=== PATIENT | female | born 1960 | race Caucasian/White ===

== ENCOUNTER 2017-02-07 12:32 | Emergency (ER) | payer MEDICARE, OTHER ==
[~2017-02-07 12:32] MED LIST: AFRIN15 M1; AMOXICILLIN PO; ATIVAN0.5 M1 PO; BENTYL20 MG PO; ELIMITE60 GM TOP; LISINOPRIL10 MG PO; LORTAB 5/500 TA1 TA1 PO; LORTAB 5/500 TA1 TA2 PO; LORTAB 7.5-5001 TAB PO; NAPROXEN PO; PEN-VEE K PO; VOLTAREN75 MG PO; ZYRTEC-D TABLE1 EACH PO
[2017-03-18] MEDS ORDERED: VITAMIN D31000 UNI1 (17:59)
[2017-03-18] MEDS ORDERED: ASPIRIN81 MG (17:59)
[2017-04-12] MEDS ORDERED: LISINOPRIL10 MG PO (12:21)
== END 2017-02-07 12:56 | disposition home or self-care (01) ==
LOC: CFTX 12:32
DX: J01.10 Acute frontal sinusitis, unspecified (principal); H00.016 Hordeolum externum left eye, unspecified eyelid; F32.9 Major depressive disorder, single episode, unspecified; I10 Essential (primary) hypertension; F41.9 Anxiety disorder, unspecified; F17.210 Nicotine dependence, cigarettes, uncomplicated; Z90.710 Acquired absence of both cervix and uterus; Z88.5 Allergy status to narcotic agent
CPT/HCPCS: 99282; 99283

== ENCOUNTER 2017-03-18 18:07 | Emergency (ER) | payer MEDICARE, OTHER ==
[~2017-03-18 18:07] MED LIST changes: +ASPIRIN81 MG; +VITAMIN D31000 UNI1
[2017-04-12] MEDS ORDERED: LISINOPRIL10 MG PO (12:21)
== END 2017-03-18 19:17 | disposition home or self-care (01) ==
LOC: SED 18:07
DX: H92.01 Otalgia, right ear (principal); F41.9 Anxiety disorder, unspecified; F32.9 Major depressive disorder, single episode, unspecified; I10 Essential (primary) hypertension; F17.210 Nicotine dependence, cigarettes, uncomplicated; Z90.710 Acquired absence of both cervix and uterus; Z98.890 Other specified postprocedural states
CPT/HCPCS: 99283

== ENCOUNTER → 2017-04-12 | Outpatient (CLI) | payer MEDICARE, OTHER ==
--- NOTE | ~2017-04-12 | EKG ---
PATIENT: SACHI CARRION UNIT #: [id number] Ventricular Rate: 105 BPM Atrial Rate: 105 BPM P-R Interval: 124 ms QRS Duration: 74 ms Q-T Interval: 324 ms QTC Calculation(Bezet): 428 ms P Mcgregor: 39 degrees Calculated R Mcgregor: -5 degrees Calculated T Mcgregor: 34 degrees Diagnosis Line: Sinus tachycardia with Fusion complexes Diagnosis Line: Otherwise normal ECG Diagnosis Line: When compared with ECG of 24-JAN-2016 16:30, Diagnosis Line: Fusion complexes are now Present Diagnosis Line: Confirmed by EDITH CASTILLO MD ([id number]) on 04/12/2017 Diagnosis Line: 6:10:26 PM INTERPRETING MD: JONATHAN CEBALLOS
[2017-04-12 14:02] LABS: ALBUMIN SERUM 4.5 g/dL (3.5-5.0); BILIRUBIN,TOTAL 0.4 mg/dL (0.2-2.0); BUN/CREATININE RATIO 17.5; CALCIUM SERUM 9.7 mg/dL (8.4-10.2); CREATININE SERUM 0.8 mg/dL (0.6-1.4); GLOM FILT RATE Estimated 80.8 mL/min (>60); POTASSIUM 4.4 mmol/L (3.5-5.1); PROTEIN TOTAL SERUM 7.5 g/dL (6.0-8.3)
== END | disposition home or self-care (01) ==
LOC: CAMB 11:45
PROVIDERS: Surgery
DX: Z01.818 Encounter for other preprocedural examination (principal); E66.01 Morbid (severe) obesity due to excess calories
CPT/HCPCS: 36415; 80053; 93005

== ENCOUNTER → 2017-04-17 | Day surgery (SDC) | payer MEDICARE, OTHER ==
--- NOTE | ~2017-04-17 | OR ---
Unit #: [id number] #: [id number] Patient: SACHI CARRION [id number] [address] [place], [place] [address] [id number] MR#: [id number] NAME: SACHI CARRION ROOM: Date of Procedure: 04/17/2017 Admission Date: 04/17/2017 Surgeon: Nikolas Collazo Jr., M.D. : 1960 Attending Physician: Nikolas Collazo Jr., M.D. Primary Care Physician: Jose Tariq Aprn OPERATIVE REPORT INDICATIONS FOR PROCEDURE The patient is a 57-year-old white female, who has been having intermittent mid epigastric and right upper quadrant abdominal pain. She was worked up and noted to have evidence of cholelithiasis with chronic cholecystitis. She is brought in this time for laparoscopic cholecystectomy at her request. She understands the procedure including the risks, including that of common duct injury, biliary leak, and bleeding, and intra-abdominal organ injury, and consents. PREOPERATIVE DIAGNOSES Chronic cholecystitis with cholelithiasis and biliary colic. POSTOPERATIVE DIAGNOSES Chronic cholecystitis with cholelithiasis and biliary colic, noting some enlarged veins in the gallbladder bed itself and some chronic inflammation. ANESTHESIA General with endotracheal intubation and 0.5% Marcaine with epinephrine locally. PROCEDURE PERFORMED Laparoscopic cholecystectomy. DESCRIPTION OF PROCEDURE The patient was positioned in supine position. After being anesthetized and intubated, she was prepped and draped in routine fashion for laparoscopic cholecystectomy. A small 0.5 cm incision was made in the right lateral abdominal wall area and a 5-mm Optiview was introduced in the abdomen. The abdomen was then inflated with CO2 gas. The camera was introduced. There was no evidence of any injury related to introduction of the Optiview. Brief intraabdominal exploration was carried out. The patient was noted to have multiple omental adhesions, but these were inferior to the umbilicus. Therefore, small supraumbilical incision was made 0.5 cm in length and a 5-mm Optiview was placed above the umbilicus. The camera was switched to this port and an additional 5-mm port placed laterally in the right lateral abdominal wall area and 11-mm port just to the right of the upper midline. Intra-abdominal exploration was carried out with the scope. The patient was noted to have multiple adhesions of the omentum to the lower abdominal wall area, but no other specific abnormalities except for what appeared to be chronic inflamed gallbladder. The gallbladder was lifted. Dissection was carried out in the triangle of Calot. There was some moderate fibrosis in the area, but the cystic duct Unit #: [id number] #: [id number] Patient: SACHI CARRION was isolated, hemoclipped x4, and divided approximately a 1 cm from its junction with the common duct. The common duct appeared normal and not dilated. Cystic artery was identified, hemoclipped x3, and divided. The gallbladder was then removed from its bed with the hook cautery using a current of 20 and after it was released, it was removed through the upper midline incision along with the grasping clamp and the port. There were dilated veins in the gallbladder bed compatible with venous leslie and these were controlled with the Bovie cautery as well as packed and pressure held for about 10 minutes with Surgicel being left in the area. After total hemostasis was noted, the clips on cystic duct and cystic artery were checked. There was no evidence of any leak or bleeding and after small amount of blood was removed with a sponge or two packed in the abdomen directly brought out, sponge count was correct x3. The fascia in the larger port site was then approximated using the neoClose technique. CO2 was expressed from the abdomen. The ports were removed. There was no evidence of any bleeding from the port sites. The port sites were irrigated. After hemostasis achieved with Bovie cautery, they were injected with 0.5% Marcaine with epinephrine locally. The skin edges were then approximated with stainless-steel skin clips and skin stapling device. Sterile dressings were applied externally. Estimated blood loss less than 125 mL. The patient received less than 1500 mL crystalloid solution during the procedure. Sponges and instrument counts were correct x3. No drains were used. No complications. The patient was taken to the recovery room with stable vital signs in satisfactory condition. Dictated by... Nikolas Collazo Jr., M.D. JMB/kelly TD: 04/18/2017 01:17 JOB #: [id number] OPERATIVE REPORT Page 1 of 1 X Nikolas Collazo MD PROCEDURE OPERATIVE NOTE
== END | disposition home or self-care (01) ==
LOC: CSUR 09:52
DX: K80.10 Calculus of gallbladder with chronic cholecystitis without obstruction (principal); I10 Essential (primary) hypertension; F17.210 Nicotine dependence, cigarettes, uncomplicated; K21.9 Gastro-esophageal reflux disease without esophagitis; Z90.710 Acquired absence of both cervix and uterus; Z88.6 Allergy status to analgesic agent; Z79.52 Long term (current) use of systemic steroids; Z79.899 Other long term (current) drug therapy; Z90.49 Acquired absence of other specified parts of digestive tract
CPT/HCPCS: 82947; 88304; J0330; J0690; J1650; J2250; J2405; J2710; J3010

== ENCOUNTER 2017-04-20 09:32 | Emergency (ER) | payer MEDICARE, OTHER | END 2017-04-20 10:35 | disposition home or self-care (01) | LOC: CFTX 09:32 → CED 09:32 → CFTX 10:29 | DX: H92.01 Otalgia, right ear (principal); F41.8 Other specified anxiety disorders; F17.210 Nicotine dependence, cigarettes, uncomplicated; Z90.49 Acquired absence of other specified parts of digestive tract | CPT/HCPCS: 99282 ==